=== PATIENT | female | born 1975 | race African-American/Black ===

== ENCOUNTER 2018-08-15 03:14 | Emergency (ER) | payer SELFPAY ==
[~2018-08-15] VITALS: Ht 154.9 cm; Wt 100.0 kg
[2018-08-15 03:17] VITALS: BP 140/73; TEMP 97.1
[2018-08-15 03:49] LABS: STREP SCREEN NEGATIVE
[2018-08-15 04:28] VITALS: PULSE 67
== END 2018-08-15 04:28 | disposition home or self-care (01) ==
LOC: COL.ER 03:14
PROVIDERS: Emergency Medicine
DX: B34.9 Viral infection, unspecified (principal)